=== PATIENT | male | born 1960 | race African-American/Black ===

== ENCOUNTER 2019-03-02 12:16 | Emergency (ER) | payer MEDICAID, OTHER ==
[~2019-03-02] VITALS: Ht 170.2 cm; Wt 113.4 kg
[2019-03-02 15:15] VITALS: BP 135/91
== END 2019-03-02 15:39 | disposition home or self-care (01) ==
LOC: ER 12:16
DX: J45.909 Unspecified asthma, uncomplicated (principal); I10 Essential (primary) hypertension; E66.01 Morbid (severe) obesity due to excess calories; Z76.0 Encounter for issue of repeat prescription; Z68.39 Body mass index [BMI] 39.0-39.9, adult